=== PATIENT | female | born 1970 | race Caucasian/White ===

== ENCOUNTER 2016-05-06 00:51 | Day surgery (SDC) | payer OTHER ==
[~2016-05-06] VITALS: Ht 172.7 cm; Wt 94.0 kg
[~2016-05-06 00:51] MED LIST: ASCO100089 PO; CALC-190 PO; CHOL200025 PO; DICY20TA10 PO; DULO20CA18 PO; ESTR1TAB24 PO; FURO40TA4 PO; HYOS0.1218 SL; MAGN250T29 PO; ONDA-54 PO; PREG300C PO; RANI150C4 PO; THIO300C PO; TIZA2TAB3 PO; TOPI25TA26 PO; TRAM50TA2 PO; fiber choice
[2016-05-06] MEDS ORDERED: Sodium Chloride LOK Flush 10 mL Syringe IV PRN (08:40)
[2016-05-06] MEDS ORDERED: fentaNYL-PF 50 mCg/mL 2 mL Inj IVPUSH PRN (08:40)
[2016-05-06 08:52] VITALS: BP 115/73; PULSE 68; RESP 16; O2SAT 98
[2016-05-06] MEDS ORDERED: PANT40TA3 PO (08:59)
[2016-05-06] MEDS: 0.9% Sodium Chloride 1,000 ML IV PRN ×2 (09:07→09:56)
[2016-05-06 10:05] VITALS: BP 121/72; PULSE 58; RESP 15; O2SAT 90
[2016-05-06 10:20] VITALS: BP 121/70; PULSE 100; RESP 15; O2SAT 92
--- NOTE | 2016-05-06 10:30 | ENDO ---
[address] [address] ENDOSCOPY PROCEDURE PATIENT: KEON LANDA : 1970 MR#: [id number] ADMIT: 05/06/2016 JOB ID: [id number] PRIMARY PROVIDER: Socorro Evans DO PROCEDURE: Esophagogastroduodenoscopy with biopsies. INDICATIONS: A 46-year-old female with refractory reflux symptoms and dyspepsia of uncertain etiology. Repeat EGD is pursued. She maintains that she is on a very strict gluten-free diet in light of her history of celiac. EQUIPMENT: GIF-H180-J. SEDATION: 5 mg Versed and 100 mcg fentanyl. COMPLICATIONS: None identified. PROCEDURE INFORMATION: After the risks and benefits were explained, written and verbal informed consent was obtained. The patient was brought into the endoscopy suite and placed into the left lateral decubitus position. Sedation was achieved using the above-stated medications with the addition of oxygen via nasal cannula. The scope was introduced into the mouth through the bite block, and advanced under direct visualization through the oropharynx, esophagus, stomach, and onto the second portion of the duodenum. The scope was slowly withdrawn to carefully examine the mucosa for any defects or lesions. Retroflexed views were accomplished in the stomach. The stomach was decompressed, the scope removed from the patient who tolerated the procedure well. FINDINGS: 1. Duodenum: The mucosa appeared quite atrophic throughout. No ulcers. No mass lesions through to the second portion. A random biopsy was taken from D2 to determine whether there has been any overall improvement with her gluten-free diet. 2. Stomach: The patient had a moderate diffuse gastropathy. No ulcers. No mass lesions. No outlet obstruction. Biopsies x2 were taken from the gastric mucosa. The patient had a relatively J-shaped stomach. No significant pathology identified in retroflexed views of the LES. 3. Esophagus: The GE junction was at approximately 36.5 cm from the incisors. I did not appreciate any acute erosive changes. No strictures. No mass lesions. The patient had a very subtle sliding hiatal hernia. No other significant pathology appreciated. ENDOSCOPIC DIAGNOSES: 1. Subtle sliding hiatal hernia. 2. J-shaped stomach. 3. Gastropathy. 4. Duodenopathy. RECOMMENDATIONS: 1. Await histopathology. 2. Continue antireflux therapy for now (40 mg Protonix twice a day.) 3. A 24-hour pH testing on therapy is appropriate considering the severity of her ongoing chronic symptoms. 4. Follow up in my office about one week after the pH is accomplished.
--- NOTE | 2016-05-08 11:27 | PATH ---
SURGICAL PATHOLOGY Attending Physician:Eufemia Hensley CASE STATUS: Signed Out PATIENT NAME: KEON LANDA PID: [id number] : 1970 DATE COLLECTED:05/06/2016 17:04 SPECIMEN: 1: Duodenum, Biopsy 2: Gastric, Biopsy CLINICAL HISTORY: GERD 1). DUODENUM BIOPSY 2). GASTRIC BIOPSY FINAL DIAGNOSIS: 1.DUODENUM BIOPSY: DUODENAL MUCOSA WITH NO DIAGNOSTIC ALTERATIONS. Negative for inflammation, sprue, dysplasia, and malignancy. 2.GASTRIC BIOPSY: BODY-TYPE MUCOSA WITH NO DIAGNOSTIC ALTERATIONS. Negative for Helicobacter organisms. Negative for intestinal metaplasia. Negative for dysplasia and malignancy. ICD10 code R10.13 GROSS DESCRIPTION: The specimen is received in two formalin filled containers labeled with the patient's name. 1). The specimen is sublabeled "duodenum" and consists of a 0.3 x 0.3 x 0.3 CM portion of tissue which is entirely submitted in cassettes 1A. 2). The specimen is sublabeled "gastric" and consists of 2 portions of tissue which aggregate to 0.4 x 0.4 x 0.3 CM. The specimen is entirely submitted in cassette 2A. 05/06/2016 [facility] MICRO DESCRIPTION: See diagnosis. ICD-9 CODES: CPT CODES: 1: 89392 2: 75763 Electronically Signed Out Anette Gaffney MD [facility] Pathology [facility] [address], [place] [address] Technical component performed at [facility], [address] [place] [address] [address], [address]
== END 2016-05-06 23:59 | disposition home or self-care (01) ==
LOC: END 00:51
PROVIDERS: ATTEND Internal Medicine Gastroenterology
DX: K21.9 Gastro-esophageal reflux disease without esophagitis (principal); K31.9 Disease of stomach and duodenum, unspecified; K44.9 Diaphragmatic hernia without obstruction or gangrene; K58.9 Irritable bowel syndrome, unspecified; E78.00 Pure hypercholesterolemia, unspecified; F32.9 Major depressive disorder, single episode, unspecified; E55.9 Vitamin D deficiency, unspecified; G62.9 Polyneuropathy, unspecified; G47.00 Insomnia, unspecified; M81.0 Age-related osteoporosis without current pathological fracture; G31.84 Mild cognitive impairment of uncertain or unknown etiology
CPT/HCPCS: 43239; 88305; 99153; G0500; J2250; J3010; J7030

== ENCOUNTER 2016-06-09 08:31 | Day surgery (SDC) | payer OTHER ==
[~2016-06-09 08:31] MED LIST changes: +PANT40TA3 PO
[2016-06-09] MEDS ORDERED: Lidocaine Topical 2% 30 mL Jelly ONE (09:30)
== END 2016-06-09 23:59 | disposition home or self-care (01) ==
LOC: END 08:31
PROVIDERS: ATTEND Internal Medicine Gastroenterology
DX: K21.9 Gastro-esophageal reflux disease without esophagitis (principal)